=== PATIENT | male | born 1995 | race Caucasian/White ===

== ENCOUNTER 2024-02-01 14:01 | Emergency (ER) | payer SELFPAY ==
--- OUTSIDE RECORDS SUMMARY | 2024-02-01 14:04 | XMS REPORT | Continuity of Care Document ---
Author Name Unknown Address [address] [place] [address] [facility] thconnect Address [address] [place] [address] Care Team Providers Care Disability Examiner Name Role Phone Pcp, Pcp Primary Care Physician Unavailab BRICE Byrnes Attending Clinician Unavailable Brice Beaulieu DO Attending Clinician Payers Payer Name Policy Type Policy Number Effective Date Expirati on Date Source GENERIC WORK COMP [employer] [id number] 2024 00:00:00 Social History Social Habit Start Date Stop Date Quantity Comments Source ASSERTION Possible [facility] Gender identity Chaim joe [facility] Sexual orientation M emorial [facility] Tobacco use and exposure 2024-01-23 00:00:00 2024-01-23 00:00:00 Smokeless tobacco non-user [facility] Alcoholic beverage intake 2024-01-23 00:00:00 2024-01-23 00:00:00 Ex-drinker (finding) [facility] History of Social function 2024-01-23 00:00:00 2024-01-23 00:00:00 [facility] Smoking Status Start Date Stop Date Source Never smoked tobacco Hayden tadeo [place] [facility] Medications Ordered Medication Name Filled Medication Name Start Date Stop Date Current Medication? Ordering Clinician Indication Dosage Frequency Signature (SIG) Comments Components Source bacitracin ointment bacitracin ointment 2023-03 09:00: 00 Yes [id number] 3D Topical, 3 times daily, First dose on Mon01/24/24 at 0900, Apply to scrotal wound Hayden Harrison [facility] cefTRIAXone (Rocephin) 2 g in sterile water injection cefTRIAXone (Rocephin) 2 g in sterile water injection 2023-03 21:05: 00 01-22 21:50 :00 No 2g 2 g, Intravenou s, Administer over 5 Minutes, Once, On Mon01/23/24 at 2105, For 1 dose, Reconstitu te vial with 20 mL sterile water for injection. Prepare dose at bedside immediatel y prior to administra tion. Reconstitu tion: Shake immediatel y and vigorously . Withdraw entire contents and give IV push slowly over specified time., Suspected Indication (Select all that apply): Skin/Soft Tissue Infection Hayden Harrison [facility] cephalexin (Keflex) 500 MG capsule cephalexin (Keflex) 500 MG capsule 2023-03 00:00: 00 01-29 23:59 :00 No 500mg Q.25D Take 1 capsule by mouth in the morning and 1 capsule at noon and 1 capsule in the evening and 1 capsule before bedtime. Do all this for 7 days. Hayden Harrison [facility] Immunizations Ordered Immunization Name Filled Immunization Name Date Status Comments Source Tdap Tdap 2024-01-23 00:00:00 Completed [facility] Vital Signs Vital Name Observation Time Observation Value Comments S yvonnemaddie Systolic blood pressure 2024-01-23 21:00:00 146 mm[Hg] [facility] Diastolic blood pressure 2024-01-23 21:00:00 73 mm[Hg] [facility] Heart rate 2024-01-23 21:00:00 86 /[facility] Respiratory rate 2024-01-23 21:00:00 20 /min [facility] Oxygen saturation in Arterial blood by Pulse oximetry 2024-01-23 21:00:00 97 /min [facility] Body temperature 2024-01-23 15:33:00 36.83 Radha [facility] Body height 2024-01-23 15:33:00 188 cm Chaim joe [facility] Body weight 2024-01-23 15:33:00 92.987 kg [facility] BMI 2024-01-23 15:33:00 26.32 kg/m2 Chaimpebbles diaz [facility] Systolic blood pressure 2024-01-23 21:00:00 146 mm[Hg] Balwinder cervantes [facility] Diastolic blood pressure 2024-01-23 21:00:00 73 mm[Hg] Balwinder cervantes [facility] Heart rate 2024-01-23 21:00:00 86 /min Dell davies [facility] Respiratory rate 2024-01-23 21:00:00 20 /min [facility] Oxygen saturation in Arterial blood by Pulse oximetry 2024-01-23 21:00:00 97 /min Balwinder cervantes [facility] Body temperature 2024-01-23 15:33:00 36.83 Radha [facility] Body height 2024-01-23 15:33:00 188 cm Chaimpebbles diaz [facility] Body weight 2024-01-23 15:33:00 92.987 kg Chaim [facility] BMI 2024-01-23 15:33:00 26.32 kg/m2 [facility] Procedure Date / Time Performed Performing Clinicia n Source US SCROTUM DOPPLER 2024-01-23 17:10:00 Christina Ocampo [facility] BASIC METABOLIC PANEL 2024-01-23 16:08:00 Christina Ocampo [facility] COMPLETE BLOOD COUNT W/DIFF AND PLATELET 2024-01-23 16:08:00 Christina Ocampo [facility] PROTIME-INR 2024-01-23 16:08:00 Christina Ocampo [facility] PTT 2024-01-23 16:08:00 Christina Ocampo [facility] COMPLETE BLOOD COUNT 2024-01-23 16:08:00 [facility] DI[facility] 2024-01-23 16:08:00 Christina Ocampo [facility] Encounters Start Date/Time End Date/Time Encounter Type Admission Type Attending Clinicians Care Facility Care Department Encounter ID Source 2024-01-23 15:35:00 2024-01-23 22:00:00 Emergency Urgent BRICE BEAULIEU [facility] General Medicine [id number] [facility] 2024-01-23 15:35:00 2024-01-23 22:00:00 Emergency BrittneeBrice [facility] [id number] Hayden tadeo [facility] Notes Date/Time Note Provider Source Referral ID Status Reason Start Date Expiration Date Visits Requested Visits Authorized [id number] Pending Review Specialty Services Required 4 07/21/2024 1 1 [id number] 22:01[facility]00* [id number] 22:01:00* Calculated C-SSRS Risk Score (Lifetime/Recent) Answer Date of Assessment Author No Risk Indicated 01/23/2024 3:34 PM CDT Holly Anthony RN * [place] Suicide Severity Rating Scale (Screener/Recent Self-Report) Question Answer Date of Assessment Author 1. Wish to be (Past 1 Month) No 024 3:34 PM VANESSAT Holly Anthony RN 2. Non-Specific Active Suici nitin Thoughts (Past 1 Month) No 01/23/2024 3:34 PM CDT Kirt Anthony RN 6. Suicidal Behavior (Lifetime) No 4 3:34 PM CDT Holly Anthony RN [facility]49[facility] 22:01:00Scheduled Referrals Health Maintenance Due Date Last Done Comments Varicella Vaccines (1 of 2 - 13+ 2-dose series) 01/28/2008 Hepatitis B Vaccines (1 of 3 - 19+ 3-dose series) 2014 Pap Smear 01/28/2016 Influenza Vaccine (#1) 2023 DTaP/Tdap/Td Vaccines (2 - T d or Tdap) 01/22/2034 01/23/2024 HIB Vaccines Aged Out No longer eligi ble based on patient's age to complete this topic HPV Vaccines Aged Out No longer eligi ble based on patient's age to complete this topic Hepatitis A Vaccines Aged Out No long er eligible based on patient's age to complete this topic IPV Vaccines Aged Out No longer eligi ble based on patient's age to complete this topic Meningococcal Vaccine Aged Out No stevenson clarita eligible based on patient's age to complete this topic Pneumococcal Vaccine: Pediat rics (0 to 5 Years) and At-Risk Patients (6 to 64 Years) Aged Out No longer eligible b ased on patient's age to complete this topic Rotavirus Vaccines Aged Out No longer eligible based on patient's age to complete this topic [id number] 22:01:00 Diagnosis Laceration of scrotum, initi al [id number] 22:01:00 Balwinder Harrison
--- NOTE | 2024-02-01 14:43 | EDPHYS ---
Physician Documentation [facility] Name: Deny Prajapati Age: 29 yrs Sex: Male : 1995 Arrival Date: 02/01/2024 Time: 14:01 Bed 12 Private MD: ED Physician Aristeo Ramsey HPI: 01/31 14:22 This 29 yrs old Male presents to ER via Ambulatory with complaints of Suture Recheck. sb4 14:22 Patient presents to ED for recheck of: laceration. The affected area is on the left sb4 testicle. Previous treatment: The patient was initially treated 9 day(s) ago, the care was rendered at [facility], Treatment type: The patient's original treatment included oral antibiotics, Keflex, sutures, Outpatient prescription(s): The patient was given prescription(s) for Keflex, NSAIDS, ibuprofen. Progress: The patient reports decreased pain, redness, swelling, sutures opened, wound gaping. The patient has not experienced similar symptoms in the past. Historical: - Allergies: 14:17 No Known Allergies; ll1 - PMHx: 14:17 None; ll1 - PSHx: 14:17 Tonsillectomy; ll1 - Immunization history:: Client reports receiving the 2nd dose of the Covid vaccine. - Infectious Disease History:: Denies. possible MRSA in the past, not confirmed. - Social history:: Smoking status: Patient reports the use of cigarette tobacco products, smokes one-half pack cigarettes per day, Reported history of juuling and/or vaping. Patient uses alcohol, weekly. ROS: 14:24 Constitutional: Negative for fever, chills, and weight loss, sb4 14:24 Skin: Positive for laceration(s), 14:57 All other systems are negative, sb4 Exam: 14:57 Constitutional: This is a well developed, well nourished patient who is awake, alert, sb4 and in no acute distress. Head/Face: Normocephalic, atraumatic. Eyes: Extra-ocular motions intact. Periorbital areas with no swelling, redness, or edema. ENT: Mucous membranes moist. 14:57 Skin: Wound recheck: Suture laceration closure: no drainage, no erythema, no swelling, moderate dehiscence, scrotum, Vital Signs: 14:16 Weight 92.99 kg; Height 6 ft. 2 in. ; ll1 14:23 BP 135 / 81; Pulse 76; Resp 17; Temp 97.7; Pulse Ox 99% ; me1 14:16 Body Mass Index 26.32 (92.99 kg, 187.96 cm) ll1 MDM: 14:11 Medical Screening Exam initiated sb4 14:46 ED course: Spoke to patient at length about options including healing by secondary rn intention versus transfer to [facility] for wound dehiscence of scrotal laceration. Patient declines transfer. He plans on seeing [facility] urologist that initially closed the wound. Has appointment in 1 week but is going to try to see her sooner.. 14:57 Data reviewed: vital signs, nurses notes, and as a result, I will discharge patient. sb4 Counseling: I had a detailed discussion with the patient and/or guardian regarding the historical points, exam findings, and any diagnostic results supporting the discharge/admit diagnosis, to return to the emergency department if symptoms worsen or persist or if there are any questions or concerns that arise at home. Administered Medications: No medications were administered Disposition: 15:59 Co-signature as Attending Physician, Aristeo Ramsey MD I reviewed the patient's care rn provided by the Advanced Practice Provider and agree with the diagnosis and treatment plan. Disposition Summary: 02/01/24 14:42 Discharge Ordered Notes: Location: Home sb4 Problem: new sb4 Symptoms: are unchanged sb4 Condition: Stable sb4 Diagnosis - Scrotal laceration, wound dehiscence sb4 Followup: sb4 - With: Private Physician - When: Tomorrow - Reason: Wound Recheck Discharge Instructions: - Discharge Summary Sheet sb4 - Wound Dehiscence, Muve-fo-Uraz sb4 Forms: - Patient Portal Instructions sb4 - Leadership Thank You Letter sb4 Signatures: Aristeo Ramsey MD MD rn Lewis, Lynsay, RN RN Tatum Amaya PA-C PA-C sb4 Corrections: (The following items were deleted from the chart) 14:57 14:24 Skin: Positive for sb4 sb4
--- NOTE | 2024-02-01 14:43 | ER ---
Nurse's Notes [facility] Name: Deny Prajapati Age: 29 yrs Sex: Male : 1995 Arrival Date: 02/01/2024 Time: 14:01 Bed 12 Private MD: Diagnosis: Scrotal laceration, wound dehiscence Presentation: 01/31 14:16 Chief complaint: Patient states: on 01/22 I had a work accident where I had a ll1 testicular laceration. I got stitches. Today the stitches ripped open. Coronavirus screen: Client denies travel out of the [place] in the last 14 days. Ebola Screen: Patient negative for fever greater than or equal to 101.5 degrees Fahrenheit, and additional compatible Ebola Virus Disease symptoms Patient denies exposure to infectious person. Patient denies travel to an Ebola-affected area in the 21 days before illness onset. No symptoms or risks identified at this time. Initial Sepsis Screen: Does the patient have a suspected source of infection? No. Patient's initial sepsis screen is negative. Risk Assessment: Do you want to hurt yourself or someone else? Patient reports no desire to harm self or others. Onset of symptoms was February 01, 2024. 14:16 Method Of Arrival: Ambulatory ll1 14:16 Acuity: HAILEY 4 ll1 14:52 Initial Sepsis Screen: Does the patient meet any 2 criteria? No. Patient's initial me1 sepsis screen is negative. Does the patient have a suspected source of infection? No. Patient's initial sepsis screen is negative. Triage Assessment: 14:17 General: Appears in no apparent distress. Behavior is calm, cooperative. Pain: Denies ll1 pain. EENT: No signs and/or symptoms were reported regarding the EENT system. Neuro: Level of Consciousness is awake, alert, obeys commands, Oriented to person, place, time, situation. Cardiovascular: Patient's skin is warm and dry. Respiratory: Airway is patent Respiratory effort is even, unlabored, Respiratory pattern is regular, symmetrical. GI: No signs and/or symptoms were reported involving the gastrointestinal system. Abdomen is flat, non-distended. : Reports stitches open on testicles. Derm: No signs and/or symptoms reported regarding the dermatologic system. Musculoskeletal: No signs and/or symptoms reported regarding the musculoskeletal system. Historical: - Allergies: 14:17 No Known Allergies; ll1 - PMHx: 14:17 None; ll1 - PSHx: 14:17 Tonsillectomy; ll1 - Immunization history:: Client reports receiving the 2nd dose of the Covid vaccine. - Infectious Disease History:: Denies. possible MRSA in the past, not confirmed. - Social history:: Smoking status: Patient reports the use of cigarette tobacco products, smokes one-half pack cigarettes per day, Reported history of juuling and/or vaping. Patient uses alcohol, weekly. Screenin:25 [facility] ED Fall Risk Assessment (Adult) History of falling in the last 3 months, me1 including since admission No falls in past 3 months (0 pts) Confusion or Disorientation No (0 pts) Intoxicated or Sedated No (0 pts) Impaired Gait No (0 pts) Mobility Assist Device Used No (0 pt) Altered Elimination No (0 pt) Score/Fall Risk Level 0 - 2 = Low Risk Maintained a safe environment, Provided non-skid footwear, Hourly rounding (assess needs \T\ fall precautionary measures) done. Abuse screen: Denies threats or abuse. Nutritional screening: No deficits noted. Tuberculosis screening: No symptoms or risk factors identified. Assessment: 14:25 General: Appears comfortable, well groomed, well developed, well nourished, Behavior is me1 calm, cooperative, appropriate for age, Reports on 01/22 I had a work accident where I had a testicular laceration. I got stitches. Today the stitches ripped open. Pain: Complains of pain in pelvis and left testicle and groin Pain does not radiate. Pain currently is 6 out of 10 on a pain scale. Quality of pain is described as stinging, Is continuous. Neuro: Level of Consciousness is awake, alert, obeys commands, Oriented to person, place, time, situation, Appropriate for age. Cardiovascular: Patient's skin is warm and dry. Respiratory: Airway is patent Respiratory effort is even, unlabored, Respiratory pattern is regular, symmetrical. GI: No signs and/or symptoms were reported involving the gastrointestinal system. : Reports on 01/22 I had a work accident where I had a testicular laceration. I got stitches. Today the stitches ripped open. EENT: No signs and/or symptoms were reported regarding the EENT system. Derm: Wound noted left testicle Wound is on 01/22 I had a work accident where I had a testicular laceration. I got stitches. Today the stitches ripped open. Musculoskeletal: No signs and/or symptoms reported regarding the musculoskeletal system. Injury Description: Laceration is on 01/22 I had a work accident where I had a testicular laceration. I got stitches. Today the stitches ripped open. Vital Signs: 14:16 Weight 92.99 kg; Height 6 ft. 2 in. ; ll1 14:23 BP 135 / 81; Pulse 76; Resp 17; Temp 97.7; Pulse Ox 99% ; me1 14:16 Body Mass Index 26.32 (92.99 kg, 187.96 cm) ll1 ED Course: 14:03 Patient arrived in ED. mr 14:03 Tatum Clay PA-C [facility]. sb4 14:03 Aristeo Ramsey MD is Attending Physician. sb4 14:12 Keisha Cunningham, [place] is Primary Nurse. me1 14:17 Triage completed. ll1 14:17 Arm band placed on right wrist. ll1 14:25 Patient has correct armband on for positive identification. Bed in low position. Call me1 light in reach. Provided Education on: POC. Verbalized understanding.. Client placed on continuous cardiac and pulse oximetry monitoring. NIBP monitoring applied. Pulse ox on. NIBP on. 14:25 No provider procedures requiring assistance completed. Patient did not have IV access me1 during this emergency room visit. Administered Medications: No medications were administered Medication: 14:25 VIS not applicable for this client. me1 Outcome: 14:42 Discharge ordered by . sb4 14:52 Discharged to home ambulatory, with significant other, me1 14:52 Condition: stable 14:52 Discharge instructions given to patient, significant other, Instructed on discharge instructions, follow up and referral plans. Demonstrated understanding of instructions, follow-up care, 14:52 Patient left the ED. me1 Signatures: Gillian Lovell, Reg Reg Gustavo Bradley RN RN ll1 Tatum Clay PA-C PA-C sb4 Keisha Cunningham, [place] RN me1 Corrections: (The following items were deleted from the chart) 14:25 14:16 Chief complaint: Patient states: on 01/22 I had a work accident where I had a me1 testicular laceration. I got stitches. Today the stitches ripped open. ll1
[2024-02-01 15:11] VITALS: BP 135/81; TEMP 97.7; O2SAT 99
== END 2024-02-01 14:52 | disposition home or self-care (01) ==
LOC: ER 14:01
DX: T81.30XA Disruption of wound, unspecified, initial encounter (principal)
CPT/HCPCS: 99283